=== PATIENT | female | born 1975 ===

== ENCOUNTER 2022-06-01 04:12 | Day surgery (SDC) | payer OTHER ==
[2022-05-08 13:27] VITALS: BMI 26.4
[2022-06-01] MEDS ORDERED: LIDOCAINE HCL 1%, 10 MG/ML (20ML VIAL) ONE (07:20)
[2022-06-01] MEDS ORDERED: LIDOCAINE HCL 2% 100 MG/5 ML DISP.SYRIN ONE (07:44)
[2022-06-01] MEDS ORDERED: PROPOFOL 20 ML ONE (07:45)
[2022-06-01] MEDS ORDERED: MIDAZOLAM HCL 2 MG/2 ML SINGLE DOSE VIAL ONE ×2 (07:45→09:44)
[2022-06-01] MEDS ORDERED: LIDOCAINE HCL 1%, 10 MG/ML (20ML VIAL) NR ONE (09:59)
[2022-06-01] MEDS ORDERED: PROMETHAZINE HCL 25 MG/1 ML VIAL IVPUSH PRN (10:32)
[2022-06-01] MEDS ORDERED: oxyCODONE HCL 5 MG TABLET PO PRN (10:32)
[2022-06-01] MEDS ORDERED: ONDANSETRON 4 MG/2 ML VIAL IVPUSH PRN (10:32)
[2022-06-01] MEDS ORDERED: LACTATED RINGERS SOLUTION 1,000 ML IV SCH (10:45)
[2022-06-01 11:54] VITALS: RESP 18
[2022-06-01 17:31] VITALS: BP 101/62; PULSE 67; TEMP 98.1
== END 2022-06-01 16:20 | disposition home or self-care (01) ==
LOC: JASU-SURG 04:12
PROVIDERS: ATTEND Surgery
PROC: 0HBT0ZX Excision of Right Breast, Open Approach, Diagnostic (ICD-10-PCS; principal; 2022-06-01 08:30)
DX: D24.1 Benign neoplasm of right breast (principal)
CPT/HCPCS: 19281; 76098-TC-FY; 88307-TC; 94760